=== PATIENT | male | born 1975 | race Caucasian/White ===

== ENCOUNTER 2022-10-27 01:27 | Day surgery (SDC) | payer BC, SELFPAY ==
[2022-10-21 10:18] VITALS: BMI 24.4
--- NOTE | 2022-10-27 13:06 | WPDANESEPPF ---
Anes - Initial Pre Proc Eval Procedure: Operation Date: 10/27/22 14:00 Proposed Procedures p Esophagogastroduodenoscopy & Screening Colonoscopy - Bertrand Benitez MD Date/Time: 10/27/22 13:06 Surgeon: Bertrand Benitez MD Pre Op Diagnosis: hx colon polyps, GERD Patient Data Age: 47 Gender: M Height: 1.78 m Weight: 77.25 kg Allergies Allergy/AdvReac Type Severity Reaction Status Date / Time ioversol Allergy Unknown Hives Verified 10/27/22 13:08 Contrast Media Allergy Severe HIVES Uncoded 10/27/22 13:08 IV CONTRAST Allergy Severe HIVES Uncoded 10/27/22 13:08 Home Medications Medication Instructions Recorded Confirmed Type oxycodone 20 mg tablet 20 mg PO Q4H PRN Pain 11/08/19 10/27/22 History esomeprazole magnesium 20 mg 20 mg PO BID 06/04/22 10/21/22 History capsule,delayed release (Nexium) lisinopril 30 mg tablet 30 mg PO DAILY #90 tabs 06/04/22 10/21/22 Rx simvastatin 20 mg tablet See Rx Instructions .Route 06/04/22 10/27/22 Rx .COMPLEX #90 tabs alprazolam 0.5 mg tablet 0.5 mg PO TID PRN Anxiety 10/21/22 10/21/22 History duloxetine 60 mg capsule,delayed 60 mg PO DAILY 10/21/22 10/21/22 History release gabapentin 300 mg capsule 300 mg PO BID 10/21/22 10/21/22 History ibuprofen 200 mg tablet 600 mg PO QAM PRN Pain 10/21/22 10/21/22 History serdexmethylphenidate 39.2 1 cap PO DAILY 10/21/22 10/21/22 History mg-dexmethylphenidate 7.8 mg capsule (Azstarys) testosterone cypionate 200 mg/mL 100 mg IM WEEKLY 10/21/22 10/21/22 History intramuscular oil trazodone 100 mg tablet 100 - 200 mg PO HS PRN Insomnia 10/21/22 10/21/22 History Patient hx anesthesia problems: none Family hx anesthesia problems: none Results Review: All pre-operative results and documents have been reviewed as part of the pre-operative evaluation. [facility] Past Medical History Medical History (Updated 10/27/22 @ 13:07 by Justin Knight DO) ADHD Anxiety Chronic back pain Chronic, continuous use of opioids GERD (gastroesophageal reflux disease) HLD (hyperlipidemia) Hypertension Surgical History Surgical History H/O colonoscopy (~2017) polyps Family History Family History Grandparent Carcinoma of colon, Onset Age: 60 Social History Social History Smoking status: Former smoker Tobacco type: smokeless tobacco Smokeless tobacco user: chewing tobacco Second hand tobacco smoke exposure: No Additional smoking assessment comments: CHEWS NICOTINE GUM Alcohol intake: never Substance use: never Substance use type: does not use Living arrangements: with family Spiritual care concerns: No Anes - Eval Final PreProcedure Day of Procedure 10/27/22 13:06 Patient weight: normal Heart: regular rate and rhythm Lungs: clear to auscultation and normal air movement Airway: Mallampati scale class II Neurological: alert and oriented Last oral intake: >/= 8 hours ASA classification: III Emergent: no Anesthetic plan: proceed Anesthesia type and monitoring: general GIVS and standard monitoring Results Review: All pre-operative results and documents have been reviewed as part of the pre-operative evaluation. Informed Consent: The patient's anesthetic plan and its attendant risks and benefits were discussed with the patient/family/POA. Questions were solicited and answers provided to the satisfaction of the patient/family/POA.
[2022-10-27 13:11] VITALS: BP 127/96; PULSE 102; RESP 18; TEMP 36.3; O2SAT 98
[2022-10-27] MEDS: LACTATED RINGERS 1,000 ML 150 ML IV CONT (13:23)
--- NOTE | 2022-10-27 13:50 | PM.HPGS ---
History of Present Illness History of Present Illness Consent: Risks, benefits, and alternatives have been discussed and questions answered. Patient agrees to proceed with procedure. Chief complaint: hx colon polyps, GERD Narrative: Woody Rao is a 47 year old male Presents for colonoscopy and EGD. Patient has a history of acid reflux and heartburn. Currently controlled on Nexium 40mg p.o. b.i.d.. He does notice recurrent symptoms if he stops this medication. Patient denies any bleeding or weight loss. Patient is referred today for EGD because of chronic ongoing GE reflux. Patient also presents for screening colonoscopy. Patient has a distant history of colon polyps. Family history is significant is mother had colon polyps his grandmother had colon cancer in uncle had esophageal cancer. Patient presents today for colonoscopy as well as EGD. Screening colonoscopy advised 5 year intervals Review of Systems Review of Systems: review of systems noncontributory. [facility] Past Medical History Medical History (Updated 10/27/22 @ 13:53 by Bertrand Benitez MD) ADHD Anxiety Chronic back pain Chronic, continuous use of opioids GERD (gastroesophageal reflux disease) HLD (hyperlipidemia) Hypertension Surgical History Surgical History H/O colonoscopy (~2017) polyps Family History Family History Grandparent Carcinoma of colon, Onset Age: 60 Social History Social History Smoking status: Former smoker Tobacco type: smokeless tobacco Smokeless tobacco user: chewing tobacco Second hand tobacco smoke exposure: No Additional smoking assessment comments: CHEWS NICOTINE GUM Alcohol intake: never Substance use: never Substance use type: does not use Living arrangements: with family Spiritual care concerns: No Meds Home Medications and Allergies Home Medications Medication Instructions Recorded Confirmed Type oxycodone 20 mg tablet 20 mg PO Q4H PRN Pain 11/08/19 10/27/22 History esomeprazole magnesium 20 mg 20 mg PO BID 06/04/22 10/21/22 History capsule,delayed release (Nexium) lisinopril 30 mg tablet 30 mg PO DAILY #90 tabs 06/04/22 10/21/22 Rx simvastatin 20 mg tablet See Rx Instructions .Route 06/04/22 10/27/22 Rx .COMPLEX #90 tabs alprazolam 0.5 mg tablet 0.5 mg PO TID PRN Anxiety 10/21/22 10/21/22 History duloxetine 60 mg capsule,delayed 60 mg PO DAILY 10/21/22 10/21/22 History release gabapentin 300 mg capsule 300 mg PO BID 10/21/22 10/21/22 History ibuprofen 200 mg tablet 600 mg PO QAM PRN Pain 10/21/22 10/21/22 History serdexmethylphenidate 39.2 1 cap PO DAILY 10/21/22 10/21/22 History mg-dexmethylphenidate 7.8 mg capsule (Azstarys) testosterone cypionate 200 mg/mL 100 mg IM WEEKLY 10/21/22 10/21/22 History intramuscular oil trazodone 100 mg tablet 100 - 200 mg PO HS PRN Insomnia 10/21/22 10/21/22 History Allergies Allergy/AdvReac Type Severity Reaction Status Date / Time ioversol Allergy Unknown Hives Verified 10/27/22 13:08 Contrast Media Allergy Severe HIVES Uncoded 10/27/22 13:08 IV CONTRAST Allergy Severe HIVES Uncoded 10/27/22 13:08 Vital Signs Vital Signs - 24 hr 10/27/22 13:11 Temperature 97.3 F L Pulse Rate 102 H Respiratory Rate 18 Blood Pressure 127/96 H Pulse Oximetry 98 Oxygen Delivery Room Air Exam Narrative: Physical exam reveals patient to be alert. Vital signs stable. HEENT exam is unremarkable. Patient anicteric. Lungs are clear to auscultation and percussion. Heart is without murmur or extra sounds. Abdomen bowel sounds are present soft nontender with no organomegaly. Digital external rectal exam is normal. Assessment and Plan Assessment and plan (1) GERD (gastroesophageal reflux disease): Code(s): K21.9 - Gastro-esophageal reflux
--- NOTE | 2022-10-27 14:30 | SUR.OPER ---
EGD START 1404, END 1409 COLONOSCOPY START 1414, END 1429
[2022-10-27 14:32] VITALS: BP 137/91; PULSE 94; RESP 20; O2SAT 100
[2022-10-27 14:42] VITALS: BP 134/98; PULSE 83; RESP 16; O2SAT 100
[2022-10-27 14:52] VITALS: BP 150/97; PULSE 81; RESP 19; O2SAT 100
== END 2022-10-27 14:58 | disposition home or self-care (01) ==
PROVIDERS: PCP Family Medicine; Visit Provider Internal Medicine Gastroenterology
PROC: 0DJ08ZZ Inspection of Upper Intestinal Tract, Via Natural or Artificial Opening Endoscopic (ICD-10-PCS; CPT 43235; principal; 2022-10-27 14:00)
DX: Z12.11 Encounter for screening for malignant neoplasm of colon (principal); K64.8 Other hemorrhoids; Z86.010 Personal history of colon polyps; Z80.0 Family history of malignant neoplasm of digestive organs; K31.7 Polyp of stomach and duodenum; K21.9 Gastro-esophageal reflux disease without esophagitis; F90.9 Attention-deficit hyperactivity disorder, unspecified type; I10 Essential (primary) hypertension; E78.5 Hyperlipidemia, unspecified; F41.9 Anxiety disorder, unspecified; M54.9 Dorsalgia, unspecified; G89.29 Other chronic pain; Z79.891 Long term (current) use of opiate analgesic; F17.290 Nicotine dependence, other tobacco product, uncomplicated
CPT/HCPCS: 45378; 43251; 88305; J2704; J7120

== ENCOUNTER 2022-10-28 09:02 | Inpatient (IN) | payer BC, SELFPAY ==
[2022-10-28] VITALS (10 sets, daily range): BP systolic 101–125; BP diastolic 70–87; PULSE 76–99; RESP 14–16; TEMP 36.4–36.6; O2SAT 96–100; BMI 23.1
--- NOTE | ~2022-10-28 | CT_ITS ---
EXAMINATION: CT abdomen pelvis wo con DATE: 10/28/2022 10:39 INDICATION: Abdomen pain post colonoscopy. TECHNIQUE: Computed tomography (CT) of the abdomen and pelvis was performed without intravenous contr ast. The dose-length product was 377.40 mGy-cm. Automated exposure control and iterative reconstructi on technique were employed. COMPARISON: None. FINDINGS: Lung bases are unremarkable. Heart size normal. No significant pleural or pericardial effus ion. There is a large amount of debris in the stomach with fluid throughout the proximal and mid smal l bowel. There is transition in the central abdomen, suspicious for obstruction. The distal small bow el is decompressed. The liver, spleen, pancreas, adrenal glands and kidneys are unremarkable. No free air or free fluid. Mild osteoarthritis of the hips. No acute osseous abnormality. No significant vas cular abnormality. No lymphadenopathy. IMPRESSION: 1. Small bowel obstruction. No evidence for perforation. Reviewed, dictated and finalized at location A. CAL VOUCHER CLERK
--- NOTE | ~2022-10-28 | XR_ITS ---
XR abdomen NG/feed tube insert INDICATION: Evaluate NG tube position. TECHNIQUE: Limited KUB perform for evaluating NG tube . COMPARISON: No prior studies for comparison. FINDINGS: NG tube tip in the stomach. Visualized bowel gas pattern is nonspecific.There are air-flui d levels in the small bowel. IMPRESSION: 1: NG tube tip in the stomach. Reviewed, dictated and finalized at location A. TOR ENGINE ASSEMBLER
[2022-10-28 09:24] LABS: Basophils Percent Auto 0.3 % (0.2-1.2); Eosinophils Percent Auto 0.1 % (0-4.4); Immature Granulocyte Absolute 0.04 K/mm3 (0.00-0.031); Immature Granulocyte Percent A 0.3 % (0-0.5); Lymphocytes Absolute Auto 1.32 K/mm3 (0.9-3.2); Mean Corpuscular HGB Conc 35.6 g/dl (32-36); Mean Corpuscular Hemoglobin 31.7 pg (26-34); Mean Corpuscular Volume 89.1 fl (80-100); Monocytes Absolute Auto 0.6 K/mm3 (0.1-0.6); Monocytes Percent Auto 4.4 % (2.6-8.5); Neutrophils Absolute Auto 11.2 K/mm3 (1.3-6.7); Neutrophils Percent Auto 84.9 % (45.5-73.1); Platelet Count Result 240 k/mm3 (150-375); Red Blood Count 5.05 M/mm3 (4.6-6.20); Red Cell Distribution Width 12.3 % (11.5-14.5); White Blood Count 13.2 K/mm3 (4.5-10.0)
[2022-10-28 09:36] LABS: Alanine Aminotransferase 40 U/L (6-50); Albumin Level 4.7 g/dL (3.5-5.1); Alkaline Phosphatase 55 U/L (38-126); Anion Gap 10 mmol/L (8-16); Aspartate Amino Transferase 29 U/L (17-59); Bilirubin,Total 0.8 mg/dL (0.2-1.3); Blood Urea Nitrogen 48 mg/dL (9-20); Calcium 9.3 mg/dL (8.4-10.2); Carbon Dioxide 29 mmol/L (22-30); Chloride 101 mmol/L (98-107); Estimated CRCL calculation 63 ml/min; Estimated Glomerular Filt Rate 59; Glucose 161 mg/dL (65-110); Lipase 63 U/L (23-300); Potassium 5.3 mmol/L (3.4-5.0); Sodium 140 mmol/L (137-145)
--- NOTE | 2022-10-28 10:24 | ED.ABDPAIN ---
HPI - Abdominal Pain General Chief Complaint: Abdominal Pain Stated Complaint: ABD/BACK Pain Time Seen by Provider: 10/28/22 10:23 Source: patient, family and EMS Mode of arrival: EMS Limitations: no limitations History of Present Illness HPI narrative: 47 years old white male the emergency room by ambulance because of watery black stool all night long, about 4 episodes, with abdominal pain and diaphoresis. Patient is a status post colonoscopy and EGD yesterday at 2 PM, for regular checkup because of positive family history of colonic cancer. Patient had 1 polyp removed from the stomach yesterday. MD elicited complaint: abdominal pain Related Data Home Medications Medication Instructions Recorded Confirmed oxycodone 20 mg tablet 20 mg PO Q4H PRN Pain 11/08/19 10/27/22 esomeprazole magnesium 20 mg 20 mg PO BID 06/04/22 10/21/22 capsule,delayed release (Nexium) alprazolam 0.5 mg tablet 0.5 mg PO TID PRN Anxiety 10/21/22 10/21/22 duloxetine 60 mg capsule,delayed 60 mg PO DAILY 10/21/22 10/21/22 release gabapentin 300 mg capsule 300 mg PO TID 10/21/22 10/21/22 ibuprofen 200 mg tablet 600 mg PO QAM PRN Pain 10/21/22 10/21/22 serdexmethylphenidate 39.2 1 cap PO DAILY 10/21/22 10/21/22 mg-dexmethylphenidate 7.8 mg capsule (Azstarys) trazodone 100 mg tablet 100 - 200 mg PO HS PRN Insomnia 10/21/22 10/21/22 sildenafil (pulm.hypertension) 20 20 - 100 mg PO DAILY PRN Erectile 10/28/22 mg tablet Dysfunction simvastatin 20 mg tablet 20 mg DAILY 10/28/22 10/28/22 Allergies Allergy/AdvReac Type Severity Reaction Status Date / Time ioversol Allergy Unknown Hives Verified 10/27/22 13:08 Contrast Media Allergy Severe HIVES Uncoded 10/27/22 13:08 IV CONTRAST Allergy Severe HIVES Uncoded 10/27/22 13:08 Review of Systems Review of Systems: All systems reviewed & are unremarkable except as noted in HPI and below PMFSH Past Medical History Medical History ADHD Anxiety Chronic back pain Chronic, continuous use of opioids GERD (gastroesophageal reflux disease) HLD (hyperlipidemia) Hypertension Surgical History Surgical History H/O colonoscopy (~2017) polyps Family History Family History Grandparent Carcinoma of colon, Onset Age: 60 Social History Social History Smoking status: Former smoker Tobacco type: smokeless tobacco Smokeless tobacco user: chewing tobacco Second hand tobacco smoke exposure: No Additional smoking assessment comments: CHEWS NICOTINE GUM Alcohol intake: never Substance use: never Substance use type: does not use Spiritual care concerns: No Exam Narrative: General appearance: Well-developed, well-nourished Skin: Normal color Head: Normocephalic, nontraumatic Eyes: Clear conjunctiva ENT: Oropharynx normal, ears normal, nose normal Neck: Supple, nontender Chest and respiratory: Airway patent, no respiratory distress, no accessory muscle use Heart: Regular rate/rhythm Abdomen: Soft, slight diffuse tenderness, no distention, no organomegaly, quiet bowel sounds, rectal exam showed liquid stool, black, guaiac positive Vascular: Normal peripheral pulses, normal capillary refill. Musculoskeletal: Normal range of motion, nontender back Neurologic: Alert and oriented ?3, LINING SEWER is normal as tested, no gross motor deficit Course Consultations Consultation #1: Dr. Benitez Date: 10/28/22 Time: 12:46 Consultation #2: Dr. Pineda Date: 10/28/22 Time: 12:46 Vital Signs Vital signs: Vital Signs
[2022-10-28] MEDS: SODIUM CHLORIDE 0.9% IV 1,000 ML 999 ML IV CONT (10:41)
[2022-10-28] MEDS: ONDANSETRON INJ 4 MG/2 ML VIAL IV PUSH ×2 (10:42→13:34)
[2022-10-28] MEDS: HYDROmorphone HCL INJ (*CRX) 1 MG/ML SYR 0.5 MG IV PUSH ×3 (10:43→22:01)
[2022-10-28 12:59] LABS: Influenza A QL RT-PCR Negative (Negative); Influenza B QL RT-PCR Negative (Negative); SARS-CoV-2 RNA PCR Negative
[2022-10-28] MEDS: PANTOPRAZOLE SODIUM IV 40 MG VIAL IV PUSH ×2 (13:35→21:48)
--- NOTE | 2022-10-28 13:35 | PM.IMHP ---
H&P: HPI History of Present Illness Date/Time: 10/28/22 13:35 Chief Complaint: Abdominal pain. Narrative: This is a pleasant 47-year-old male with GERD, hyperlipidemia, anxiety, and chronic pain syndrome on long-term opiate therapy who presented to the emergency department via EMS from home for evaluation of abdominal pain. He had upper and lower endoscopies yesterday and seemed to be doing okay following the procedure. At about 01:00 he was wakened from sleep with severe, diffuse abdominal pain as well as nausea and and sweats. He has difficulties describing the pain and states that it does not radiate. He gives no aggravating or alleviating factors. He then passed upwards of for black, tarry stools throughout the rest of the night which has left him profoundly weak. In fact he had a couple of falls in his bedroom due to the weakness but he denies syncope. He indicates that he had a gastric polyp removed and he is wondering if the bleeding is due to that. With further questioning he does take 600 milligrams of ibuprofen twice a day but has done so for years and he takes that in conjunction with a PPI. Prior to today he has not noticed any dark stools. He denies vomiting hematemesis. He has not a fever. In the ED was found to have evidence of a small-bowel obstruction on CT of the abdomen and pelvis and he is being admitted in this setting for supportive care and GI consultation given the melena. Review of Systems Review of Systems: Twelve systems were reviewed. No fever. No recent cold or flu symptoms. No chest pain, pleuritic pain, or shortness of breath. Except as documented, all other systems were reviewed and are negative. [facility] Past Medical History Medical History (Updated 10/28/22 @ 21:24 by Simran Bull PA-C) ADHD Anxiety Chronic back pain Chronic, continuous use of opioids Gastroesophageal reflux disease Hyperlipidemia Hypertension Obstructive sleep apnea No longer uses CPAP after weight loss. Surgical History Surgical History History of colonoscopy with polypectomy Family History Family History Grandparent Carcinoma of colon, Onset Age: 60 Social History Social History Social History: Surrogate medical decision maker: Cindy Rao, spouse. Code status: Full code. Smoking status: Former smoker Tobacco type: smokeless tobacco Smokeless tobacco user: chewing tobacco Second hand tobacco smoke exposure: No Additional smoking assessment comments: Chews nicotine gum. Alcohol intake: never Substance use: never Substance use type: does not use Lack of Transportation: No Lack of Food: Never True Current Housing: I Have Housing Concerned About Future Housing: No Difficulty Paying Gas/Electric Bills: No Difficulty Paying for Meds: No Currently Unemployed: No Education: Associate Degree Difficulty w/ Childcare or Family Care: No Spiritual care concerns: No Meds Home Medications and Allergies Home Medications Medication Instructions Recorded Confirmed Type oxycodone 20 mg tablet 20 mg PO Q4H PRN Pain 11/08/19 10/28/22 History esomeprazole magnesium 20 mg 20 mg PO BID 06/04/22 10/28/22 History capsule,delayed release (Nexium) lisinopril 30 mg tablet 30 mg PO DAILY #90 tabs 06/04/22 10/28/22 Rx alprazolam 0.5 mg tablet 0.5 mg PO TID PRN Anxiety 10/21/22 10/28/22 History duloxetine 60 mg capsule,delayed 60 mg PO DAILY 10/21/22 10/28/22 History release gabapentin 300 mg capsule 300 mg PO TID 10/21/22 10/28/22 History serdexmethylphenidate 39.2 1 cap PO DAILY 10/21/22 10/28/22 History mg-dexmethylphenidate 7.8 mg capsule (Azstarys) trazodone 100 mg tablet 100 - 200 mg PO HS PRN Insomnia 10/21/22 10/28/22 History simvastatin 20 mg tablet 20 mg DAILY 10/28/22 10/28/22 History A
[2022-10-28 13:47] LABS: Hematocrit 39.2 % (42.0-52.0); Hemoglobin 13.9 g/dL (14.0-18.0)
[2022-10-28] MEDS: SODIUM CHLORIDE 0.9% IV 1,000 ML 150 ML IV CONT ×2 (14:55→22:03)
--- NOTE | 2022-10-28 15:37 | WPDGICN ---
Assessment and Plan Assessment and plan (1) Abdominal pain: Code(s): R10.9 - Unspecified abdominal pain Status: Acute Assessment and Plan: Patient with abdominal pain. Appears to be related abnormality seen on the CT scan. I suspect this is more likely an ileus rather than a small bowel obstruction. Plan for NG tube decompression. Small-bowel follow-through in the morning. Supportive care for now. (2) Abnormal CT scan: Code(s): R93.89 - Abnormal findings on diagnostic imaging of other specified body structures Status: Acute Assessment and Plan: Small-bowel follow-through described by radiologist. This seems unlikely. Likely an ileus. If symptoms persist small-bowel follow-through may be warranted to exclude other potential etiologies. (3) Gastric polyp: Code(s): K31.7 - Polyp of stomach and duodenum Status: Acute Assessment and Plan: Polyp of the stomach removed with snare yesterday likely accounts for melenic stools. Hemoglobin stable will monitor hemoglobin for now. Histology of polyp pending. Grossly was benign. (4) Family hx of colon cancer: Code(s): Z80.0 - Family history of malignant neoplasm of digestive organs Status: Acute Assessment and Plan: Mother had colon cancer. Follow-up colonoscopy at 5 year intervals indicated. (5) GERD (gastroesophageal reflux disease): Code(s): K21.9 - Gastro-esophageal reflux disease without esophagitis Status: Acute Assessment and Plan: History of GE reflux appears stable. Endoscopy was unremarkable in this regard. Plan to continue PPI therapy long-term. GI Consult Note Consult date/time: 10/28/22 15:37 Reason for consult: Abnormal CAT scan, abdominal pain. HPI: Woody Rao is a 47 year old male Presented to the emergency room today with abdominal pain. Patient presented yesterday for screening colonoscopy because of family history of colon cancer. The colonoscopy was unremarkable. Because of acid reflux patient underwent an EGD in rather large pre pyloric gastric polyp was removed with snare. Patient did well however in the middle of the night at 1:00 a.m. he was awoken with rather severe abdominal pain. He did pass several watery black stools. For these reasons he present to the emergency room today. Stool was confirmed to be Hemoccult positive. Hemoglobin stable. CT scan was performed which reason feel dilatation of the proximal small bowel suggesting potential for small-bowel obstruction versus ileus. Patient feels much improved on an examination in the emergency room today. Review of Systems Review of Systems: Review of systems noncontributory. [facility] Past Medical History Medical History (Updated 10/28/22 @ 15:46 by Bertrand Benitez MD) ADHD Anxiety Chronic back pain Chronic, continuous use of opioids Gastroesophageal reflux disease Hyperlipidemia Hypertension Obstructive sleep apnea Surgical History Surgical History (Updated 10/28/22 @ 13:40 by Simran Bull PA-C) History of colonoscopy with polypectomy Family History Family History Grandparent Carcinoma of colon, Onset Age: 60 Social History Social History (Updated 10/28/22 @ 13:43 by Simran Bull PA-C) Social History: Surrogate medical decision maker: Cidny Rao, spouse. Code status: Full code. Smoking status: Former smoker Tobacco type: smokeless tobacco Smokeless tobacco user: chewing tobacco Second hand tobacco smoke exposure: No Additional smoking assessment comments: Chews nicotine gum. Alcohol intake: never Substance use: never Substance use type: does not use Spiritual care concerns: No Meds Home Medications and Allergies Home Medications Medication Instructions Recorded Confirmed Type oxycodone 20 mg tablet 20 mg PO Q4H PRN Pain 11/08/19 10/27/22 History esom
--- NOTE | 2022-10-28 15:51 | PC.NURSE ---
This patient, Woody Rao, was admitted to 3 [facility] Surg Room 320-01. Patient/family oriented to hospital policies and general routines including ID bracelet, bed and alarms, visiting hours, pain management, procedures, bathroom and other care routines, personal items, smoking policy, room service/diet, and visiting hours. Information on how to activate the Rapid Response Team has been discussed. Patient/Family are encouraged to report perceived risks to care and to ask questions if they do not understand what they are told or what they should do.
[2022-10-28 16:03] LABS: Appearance Urine Clear (Clear); Bilirubin Urine Negative (Negative); Blood Urine Negative (Negative); Color Urine Yellow (Yellow); Glucose Urine UA Negative (Negative); Ketones Urine Trace mg/dL (Negative); Leukocyte Esterase Ur Negative LEU/UL (Negative); Nitrate Urine Negative (Negative); Protein Urine Negative (Negative); Specific Grav Ur 1.015 (1.001-1.035); Urobilinogen Urine 0.2 mg/dL (<2.0); pH Urine 5.5 (5.0-9.0)
[2022-10-28 16:10] LABS: Mucus Urine Rare /lpf; WBC Urine 0-3 /hpf
[2022-10-28 16:12] LABS: Add Urine Microscopic? YES
--- NOTE | 2022-10-28 18:09 | PM.CNGS ---
Assessment and Plan Assessment and plan (1) GI bleed: Code(s): K92.2 - Gastrointestinal hemorrhage, unspecified Status: Acute Assessment and Plan: I agree with Dr. Benitez that this is very unlikely to be a small bowel obstruction. I reviewed the CT scan and with the old blood coming out of the NG tube I suspect that sometime after the patient was home he began bleeding from the polypectomy site and had fairly brisk bleeding. This likely led to his pain and the subsequent black stools that he had. I think the particulate matter in the stomach is likely old blood. Defer to Dr. Benitez regarding best methods to either remove for past the gastric and small bowel contents along. Continue to monitor H&H. No plans for surgery. I will start patient on ice chips tonight. (2) Abnormal CT scan: Code(s): R93.89 - Abnormal findings on diagnostic imaging of other specified body structures Status: Acute Assessment and Plan: Doubt very much this is small-bowel obstruction. Please see above. (3) Gastric polyp: Code(s): K31.7 - Polyp of stomach and duodenum Status: Chronic Assessment and Plan: Pathology pending (4) GERD (gastroesophageal reflux disease): Code(s): K21.9 - Gastro-esophageal reflux disease without esophagitis Status: Chronic Assessment and Plan: no esophagitis on EGD. Symptoms controlled with twice a day Nexium. History of Present Illness Consult details Consult date: 10/28/22 Reason for consult: abdominal pain Requesting physician: Deirdre Jimenez MD Narrative: Patient is a 47-year-old man who has chronic back pain and takes 20 mg of oxycodone regularly for this. He also has a history of gastroesophageal reflux disease and takes Nexium twice a day which does seem to relieve the reflux significantly. Patient has family history of colon cancer and polyps as well as his significant reflux disease. He underwent an EGD and colonoscopy by Dr. Benitez yesterday. The colonoscopy was negative except for some internal hemorrhoids which were not bleeding. The EGD showed a good-sized pre-pyloric polyp which was completely excised with hot snare polypectomy. Patient recovered uneventfully except that about 1:00 a.m. this morning he started having severe hypogastric abdominal pain. He was also diaphoretic. He went on to have some watery black stools. He came to the emergency room and was evaluated. His H&H was 16 and 45. He had a CT scan of the abdomen and pelvis which showed small-bowel obstruction with transition point in the mid abdomen. Also noted was a large amount of debris in the stomach with fluid throughout the proximal and mid small intestine. He has been admitted to the hospitalist service. Dr. Benitez has seen the patient. Nasogastric tube has been placed. Currently he is not having any abdominal pain but just feels very fatigued, uncomfortable, and dehydrated. Review of Systems Review of Systems: All systems reviewed & are unremarkable except as noted in HPI and below ( HPI and those items noted below) Constitutional: Constitutional: Reports as per HPI, Denies chills, Reports fatigue, Denies fever(s), Reports lethargy and Reports weakness Cardiovascular: Cardiovascular: Denies chest pain, Denies diaphoresis, Denies dyspnea and Denies paroxysmal nocturnal dyspnea Respiratory: Respiratory: Denies chest congestion, Denies cough and Denies dyspnea Gastrointestinal: Gastrointestinal: Reports as per HPI, Reports abdominal pain and Reports melena Integumentary/Breasts: Skin/Breast: Denies lesions and Denies rash [facility] Past Medical History Medical History ADHD Anxiety Chronic back pain Chronic, continuous use of opioids Gastroesophageal reflux disease Hyperlipidemia Hypertension Obstructive sleep apnea Surgical History Surgical History Hi
[2022-10-28 19:12] LABS: Hematocrit 33.7 % (42.0-52.0); Hemoglobin 11.7 g/dL (14.0-18.0)
[2022-10-28 21:47] LABS: Anion Gap 1 mmol/L (8-16); Blood Urea Nitrogen 40 mg/dL (9-20); Calcium 8.2 mg/dL (8.4-10.2); Carbon Dioxide 28 mmol/L (22-30); Chloride 109 mmol/L (98-107); Estimated CRCL calculation 82 ml/min; Estimated Glomerular Filt Rate > 60; Glucose 99 mg/dL (65-110); Magnesium 2.1 mg/dL (1.6-2.3); Potassium 4.6 mmol/L (3.4-5.0); Sodium 138 mmol/L (137-145)
[2022-10-29 01:15] LABS: Hematocrit 31.6 % (42.0-52.0); Hemoglobin 11.1 g/dL (14.0-18.0)
[2022-10-29] MEDS: HYDROmorphone HCL INJ (*CRX) 1 MG/ML SYR 0.5 MG IV PUSH ×5 (03:05→21:18)
[2022-10-29] MEDS: SODIUM CHLORIDE 0.9% IV 1,000 ML 150 ML IV CONT ×3 (04:50→18:28)
[2022-10-29 06:00] VITALS: BP 142/87; PULSE 64; RESP 18; TEMP 36.9; O2SAT 98
--- NOTE | 2022-10-29 06:51 | PM.PNGS ---
Progress Note: A&P Assessment and Plan (1) GI bleed: Code(s): K92.2 - Gastrointestinal hemorrhage, unspecified Status: Acute Assessment and Plan: suspect post polypectomy bleeding. Old blood from NG tube. Consider endoscopic evacuation or water-soluble contrast per NG. Plan per Dr. Benitez. No plans for surgery. (2) Abnormal computed tomography of abdomen and pelvis: Code(s): R93.5 - Abnormal findings on diagnostic imaging of other abdominal regions, including retroperitoneum Status: Acute Assessment and Plan: Do not feel this represents small bowel up direction. Subjective Subjective Date/Time Seen: 10/29/22 06:51 Patient reports: no new complaints, pain is less ( No abdominal pain) and afebrile Review of Systems Review of Systems: All systems reviewed & are unremarkable except as noted in HPI and below ( as noted in HPI and those items below) Constitutional: Constitutional: Denies chills and Denies fever(s) Cardiovascular: Cardiovascular: Denies chest pain, Denies diaphoresis, Denies dyspnea and Denies paroxysmal nocturnal dyspnea Respiratory: Respiratory: Denies chest congestion, Denies cough and Denies dyspnea Integumentary/Breasts: Skin/Breast: Denies lesions and Denies rash Exam Const: General: comfortable and no acute distress; No confusion Orientation/consciousness: patient oriented x3 and No confusion GI: Inspection: other ( old blood coming from NG tube) GI Palp: Yes Soft to palpation, No Tenderness to palpation present (GI), No Guarding due to palpation present (GI) and No Rebound tenderness present Neuro: General: patient oriented x3, no focal motor deficits and No confusion Extrem: General: no calf tenderness and no edema Psych: Affect: normal affect Insight: Good insight present (Psych) Judgement: Good judgement present (Psych) Objective Data Vital Signs Vital Signs: Vital Signs - 24 hr 10/28/22 09:06 10/28/22 09:05 10/28/22 09:06 Temperature 36.5 C Pulse Rate 99 Respiratory Rate 14 Blood Pressure 116/85 116/85 Pulse Oximetry 99 99 100 Oxygen Delivery 10/28/22 09:15 10/28/22 09:16 10/28/22 09:30 Temperature Pulse Rate Respiratory Rate Blood Pressure 113/87 Pulse Oximetry 97 98 99 Oxygen Delivery 10/28/22 09:31 10/28/22 16:00 10/28/22 16:28 Temperature 36.4 C Pulse Rate 86 Respiratory Rate 16 Blood Pressure 101/70 119/77 Pulse Oximetry 98 100 Oxygen Delivery Room Air 10/28/22 22:00 10/28/22 20:00 10/29/22 06:00 Temperature 36.6 C 36.9 C Pulse Rate 76 76 64 Respiratory Rate 16 16 18 Blood Pressure 125/75 142/87 H Pulse Oximetry 96 96 98 Oxygen Delivery Room Air 10/28/22 16:14 Temperature 36.4 C Pulse Rate 86 Respiratory Rate 16 Blood Pressure 119/77 Pulse Oximetry 100 Oxygen Delivery Intake/Output Intake/Output: Intake & Output 10/26/22 10/27/22 10/28/22 10/29/22 23:59 23:59 23:59 23:59 Intake Total 1999 1030 Output Total 860 Balance 1999 170 Meds/Results Medications: Active Medications Generic Name Dose Route Start Last Admin Trade Name Freq PRN Reason Stop Dose Admin Hydromorphone HCl 0.5 mg 10/28/22 12:52 10/29/22 03:05 Hydromorphone Hcl Inj (*Crx) 1 Mg/Ml Syr IV PUSH 0.5 mg Q4H PRN Administration Pain Rated 7-10 Acetaminophen 1,000 mg in 100 mls @ 400 mls/hr 10/28/22 12:52 Ofirmev 1,000 Mg Ivpb IVPB 10/29/22 12:51 Q6H PRN Mild Pain (1-3) or Fever Sodium Chloride 1,000 mls @ 150 mls/hr 10/28/22 12:55 10/29/22 04:50 Normal Saline Iv IV CONT 150 mls/hr .Q6H40M VIJAYA Administration Ondansetron HCl 4 mg 10/28/22 12:52 Ondansetron Inj 4 Mg/2 Ml Vial IV PUSH Q4H PRN Nausea Pantoprazole Sodium 40 mg 10/28/22 21:25 10/28/22 21:48 Pantoprazole Sodium Iv 40 Mg Vial IV PUSH 40 mg Q12HR VIJAYA Administration Radiology Results: ITS Impressions Abdomen/Pelvis CT 10/28/22 10:44
[2022-10-29 07:06] LABS: Basophils Percent Auto 0.3 % (0.2-1.2); Eosinophils Percent Auto 0.4 % (0-4.4); Hemoglobin 10.8 g/dL (14.0-18.0); Immature Granulocyte Absolute 0.02 K/mm3 (0.00-0.031); Immature Granulocyte Percent A 0.3 % (0-0.5); Lymphocytes Absolute Auto 1.87 K/mm3 (0.9-3.2); Lymphocytes Percent Auto 24.4 % (18.3-44.2); Mean Corpuscular HGB Conc 33.8 g/dl (32-36); Mean Corpuscular Hemoglobin 31.4 pg (26-34); Mean Platelet Volume 10.1 fl (7.4-10.4); Monocytes Absolute Auto 0.4 K/mm3 (0.1-0.6); Neutrophils Absolute Auto 5.4 K/mm3 (1.3-6.7); Neutrophils Percent Auto 69.6 % (45.5-73.1); Platelet Count Result 153 k/mm3 (150-375); Red Blood Count 3.44 M/mm3 (4.6-6.20); Red Cell Distribution Width 12.7 % (11.5-14.5); White Blood Count 7.7 K/mm3 (4.5-10.0)
[2022-10-29 07:30] LABS: Anion Gap 2 mmol/L (8-16); Blood Urea Nitrogen 27 mg/dL (9-20); Calcium 7.8 mg/dL (8.4-10.2); Carbon Dioxide 29 mmol/L (22-30); Chloride 108 mmol/L (98-107); Estimated CRCL calculation 90 ml/min; Estimated Glomerular Filt Rate > 60; Glucose 102 mg/dL (65-110); Potassium 4.4 mmol/L (3.4-5.0); Sodium 139 mmol/L (137-145)
[2022-10-29 08:13] VITALS: BP 139/89; PULSE 83; RESP 24; TEMP 36.4; O2SAT 100
[2022-10-29] MEDS: PANTOPRAZOLE SODIUM IV 40 MG VIAL IV PUSH ×2 (08:25→21:13)
--- NOTE | 2022-10-29 08:43 | WPDGIPROGNO ---
Progress Note: A&P Assessment and Plan (1) Melena: Code(s): K92.1 - Melena Status: Acute Assessment and Plan: Patient admitted with melenic stools. Likely had some bleeding after gastric polyp polypectomy. Polyp appeared benign. Final histology pending. Patient's hemoglobin declines some but has remained stable subsequently. Current hemoglobin 10.8 this morning. No transfusion anticipated. Will discontinue NG tube in advance diet. Continue monitor hemoglobin conservatively. Place patient on Protonix and continue this. Wait till patient tolerates oral diet before trying oral medications. (2) Abnormal CT scan: Code(s): R93.89 - Abnormal findings on diagnostic imaging of other specified body structures Status: Acute Assessment and Plan: No evidence for small bowel obstruction. I think x-ray findings were spurious. Plan to advance diet as tolerated. (3) Gastric polyp: Code(s): K31.7 - Polyp of stomach and duodenum Status: Chronic Assessment and Plan: Await final histology for gastric polyp. Suspect is benign but needs to be reviewed. Subjective Date/time seen: 10/29/22 08:43 Patient alert more comfortable this morning. No significant additional bowel movements. NG tube placed last night revealed coffee-ground return. Patient denies abdominal pain this morning. Review of Systems Review of Systems: Review of systems noncontributory. Exam Narrative: Physical exam reveals patient to be alert. Vital signs stable. HEENT exam reveals no icterus. Lungs are clear. Heart without murmur. Abdomen bowel sounds present soft nontender with no organomegaly. Abdomen is soft flat nontender. Objective Data Vital Signs Vital Signs: Vital Signs - 24 hr 10/28/22 09:06 10/28/22 09:05 10/28/22 09:06 Temperature 97.7 F Pulse Rate 99 Respiratory Rate 14 Blood Pressure 116/85 116/85 Pulse Oximetry 99 99 100 Oxygen Delivery 10/28/22 09:15 10/28/22 09:16 10/28/22 09:30 Temperature Pulse Rate Respiratory Rate Blood Pressure 113/87 Pulse Oximetry 97 98 99 Oxygen Delivery 10/28/22 09:31 10/28/22 16:00 10/28/22 16:28 Temperature 97.6 F Pulse Rate 86 Respiratory Rate 16 Blood Pressure 101/70 119/77 Pulse Oximetry 98 100 Oxygen Delivery Room Air 10/28/22 22:00 10/28/22 20:00 12/08/22 06:00 Temperature 97.8 F 98.5 F Pulse Rate 76 76 64 Respiratory Rate 16 16 18 Blood Pressure 125/75 142/87 H Pulse Oximetry 96 96 98 Oxygen Delivery Room Air 10/29/22 08:13 10/28/22 16:14 Temperature 97.5 F L 97.6 F Pulse Rate 83 86 Respiratory Rate 24 H 16 Blood Pressure 139/89 119/77 Pulse Oximetry 100 100 Oxygen Delivery Intake/Output Intake/Output: Intake & Output 10/26/22 10/27/22 10/28/22 10/29/22 23:59 23:59 23:59 23:59 Intake Total 1999 1030 Output Total 860 Balance 1999 170 Meds/Results Medications: Active Medications Generic Name Dose Route Start Last Admin Trade Name Freq PRN Reason Stop Dose Admin Hydromorphone HCl 0.5 mg 10/28/22 12:52 10/29/22 08:19 Hydromorphone Hcl Inj (*Crx) 1 Mg/Ml Syr IV PUSH 0.5 mg Q4H PRN Administration Pain Rated 7-10 Acetaminophen 1,000 mg in 100 mls @ 400 mls/hr 10/28/22 12:52 Ofirmev 1,000 Mg Ivpb IVPB 10/29/22 12:51 Q6H PRN Mild Pain (1-3) or Fever Sodium Chloride 1,000 mls @ 150 mls/hr 10/28/22 12:55 10/29/22 04:50 Normal Saline Iv IV CONT 150 mls/hr .Q6H40M VIJAYA Administration Ondansetron HCl 4 mg 10/28/22 12:52 Ondansetron Inj 4 Mg/2 Ml Vial IV PUSH Q4H PRN Nausea Pantoprazole Sodium 40 mg 10/28/22 21:25 10/29/22 08:25 Pantoprazole Sodium Iv 40 Mg Vial IV PUSH 40 mg Q12HR VIJAYA Administration Radiology Results: ITS Impressions Abdomen/Pelvis CT 10/28/22 10:44 IMPRESSION: 1. Small bowel obstruction. No evidence for perforation. Abdomen X-Ray 10/28/22 1
[2022-10-29 12:00] VITALS: BP 139/89; PULSE 80
--- NOTE | 2022-10-29 13:44 | PM.IMPN ---
Progress Note: A&P Assessment and Plan (1) GI bleed: Code(s): K92.2 - Gastrointestinal hemorrhage, unspecified Status: Acute (2) Abnormal computed tomography of abdomen and pelvis: Code(s): R93.5 - Abnormal findings on diagnostic imaging of other abdominal regions, including retroperitoneum Status: Acute (3) Hyperkalemia: Code(s): E87.5 - Hyperkalemia Status: Acute (4) Gastroesophageal reflux disease: Code(s): K21.9 - Gastro-esophageal reflux disease without esophagitis Status: Acute (5) Hypertension: Qualifiers: Hypertension type: essential hypertension Qualified Code(s): I10 - Essential (primary) hypertension Code(s): I10 - Essential (primary) hypertension Status: Acute (6) Hyperlipidemia: Code(s): E78.5 - Hyperlipidemia, unspecified Status: Acute Plan The patient presented to the emergency department for evaluation of abdominal pain and melena since 01:00. He had upper and lower endoscopies done yesterday and had a gastric polypectomy. It sounds as though he may be bleeding from the polypectomy site and he has since been started on Protonix. Hemoglobin and hematocrit will be trended and he will be transfused if indicated. CT of the abdomen and pelvis shows findings of a small bowel obstruction though his abdominal exam at this time is relatively benign, I am wondering if he may have had an ileus. Continue NG for now. Drs. Benitez and Edwin have been consulted for their input. Potassium should improve with IV fluid hydration and will be repeated this evening. He will be NPO for now. IV analgesics and antiemetics available as needed. Vital signs were reviewed and they are stable. 10/29/2022 interval history: patient status post colonoscopy and polypectomy developed melena which is now improved and hemoglobin is stable, there was also concern patient may have small bowel obstruction patient was seen by GI and surgery service does not suspect patient has a small-bowel obstruction NG tube was removed and patient is advanced p.o. intake, patient also has history of alcohol abuse with concern for withdrawal. Place the patient on CIWA protocol with Librium and Ativan as needed continue and further recommendation to follow. Subjective Date/time seen: 10/29/22 13:44 HPI-Narrative: This is a pleasant 47-year-old male with GERD, hyperlipidemia, anxiety, and chronic pain syndrome on long-term opiate therapy who presented to the emergency department via EMS from home for evaluation of abdominal pain. He had upper and lower endoscopies yesterday and seemed to be doing okay following the procedure. At about 01:00 he was wakened from sleep with severe, diffuse abdominal pain as well as nausea and and sweats. He has difficulties describing the pain and states that it does not radiate.? He gives no aggravating or alleviating factors. He then passed upwards of for black, tarry stools throughout the rest of the night which has left him profoundly weak. In fact he had a couple of falls in his bedroom due to the weakness but he denies syncope. He indicates that he had a gastric polyp removed and he is wondering if the bleeding is due to that. With further questioning he does take 600 milligrams of ibuprofen twice a day but has done so for years and he takes that in conjunction with a PPI. Prior to today he has not noticed any dark stools. He denies vomiting hematemesis.? He has not a fever. In the ED was found to have evidence of a small-bowel obstruction on CT of the abdomen and pelvis and he is being admitted in this setting for supportive care and GI consultation given the melena. 10/29/2022 interval history: patient status post colonoscopy and polypectomy developed melena which is now improved and hemoglobin is stable, there was also concern patient may have small bowel obstruction patient was seen by GI and surgery service does not suspect patient has a small-bowel obstructio
[2022-10-29 14:00] VITALS: BP 136/75; PULSE 85; RESP 20; TEMP 36.7; O2SAT 99
[2022-10-29 16:00] VITALS: PULSE 88
[2022-10-29] MEDS: LORazepam INJ (*CRX) 2 MG/ML VIAL 1 MG IV PUSH (16:12)
[2022-10-29 21:26] VITALS: BP 151/78; PULSE 81; RESP 18; TEMP 36.8; O2SAT 100
[2022-10-30] MEDS: SODIUM CHLORIDE 0.9% IV 1,000 ML 150 ML IV CONT ×2 (00:54→09:41)
[2022-10-30] MEDS: HYDROmorphone HCL INJ (*CRX) 1 MG/ML SYR 0.5 MG IV PUSH ×3 (01:58→10:32)
[2022-10-30 05:15] VITALS: BP 144/78; PULSE 76; RESP 12; TEMP 36.5; O2SAT 99
[2022-10-30 07:17] LABS: Hematocrit 28.4 % (42.0-52.0); Hemoglobin 9.9 g/dL (14.0-18.0); Mean Corpuscular HGB Conc 34.9 g/dl (32-36); Mean Corpuscular Hemoglobin 31.8 pg (26-34); Mean Corpuscular Volume 91.3 fl (80-100); Mean Platelet Volume 10.5 fl (7.4-10.4); Platelet Count Result 145 k/mm3 (150-375); Red Blood Count 3.11 M/mm3 (4.6-6.20); Red Cell Distribution Width 12.2 % (11.5-14.5); White Blood Count 5.7 K/mm3 (4.5-10.0)
--- NOTE | 2022-10-30 07:18 | WPDGIPROGNO ---
Progress Note: A&P Assessment and Plan (1) Gastric polyp: Code(s): K31.7 - Polyp of stomach and duodenum Status: Chronic Assessment and Plan: Polyp from stomach found to be a hyperplastic polyp in benign. Now status post removal. Patient likely had bleeding from gastric polyp site. No additional bleeding noted this is now stopped with a stable hemoglobin. Plan to advance to regular diet discharge today. No specific follow-up anticipated for this. (2) Melena: Code(s): K92.1 - Melena Status: Acute Assessment and Plan: Melenic stools have resolved. This was likely from bleeding after gastric polypectomy. Patient does not require transfusion. Plan to advance diet. No specific follow-up. No evidence for small bowel obstruction. No additional workup warranted. Subjective Date/time seen: 10/30/22 07:18 Patient alert comfortable this morning. Tolerating diet so far. Denies abdominal pain. Bowel movements have returned to normal. No additional black stools. Review of Systems Review of Systems: Review of systems noncontributory. Exam Narrative: Physical exam reveals patient be alert comfortable rest he is anicteric. HEENT exam unremarkable. Objective Data Vital Signs Vital Signs: Vital Signs - 24 hr 10/29/22 08:13 10/29/22 12:00 10/29/22 14:00 Temperature 97.5 F L 98.1 F Pulse Rate 83 85 Pulse Rate [Right Radial Palpation] 80 Respiratory Rate 24 H 20 Blood Pressure 139/89 139/89 136/75 Pulse Oximetry 100 99 Oxygen Delivery 10/29/22 16:00 10/29/22 21:26 10/29/22 20:00 Temperature 98.2 F Pulse Rate 81 Pulse Rate [Right Radial Palpation] 88 Respiratory Rate 18 Blood Pressure 151/78 H Pulse Oximetry 100 Oxygen Delivery Room Air 10/30/22 05:15 Temperature 97.7 F Pulse Rate 76 Pulse Rate [Right Radial Palpation] Respiratory Rate 12 Blood Pressure 144/78 H Pulse Oximetry 99 Oxygen Delivery Intake/Output Intake/Output: Intake & Output 10/27/22 10/28/22 10/29/22 10/30/22 23:59 23:59 23:59 23:59 Intake Total 1999 3730 1100 Output Total 990 950 Balance 1999 2740 150 Meds/Results Medications: Active Medications Generic Name Dose Route Start Last Admin Trade Name Freq PRN Reason Stop Dose Admin Chlordiazepoxide HCl 25 mg 10/29/22 11:06 Chlordiazepoxide (*Crx) 25 Mg Capsule PO Q6H PRN Withdrawal Duloxetine HCl 60 mg 10/30/22 09:00 Duloxetine Hcl 60 Mg Capsule.Dr LANDRY QAM VIJAYA Hydromorphone HCl 0.5 mg 10/28/22 12:52 10/30/22 06:34 Hydromorphone Hcl Inj (*Crx) 1 Mg/Ml Syr IV PUSH 0.5 mg Q4H PRN Administration Pain Rated 7-10 Sodium Chloride 1,000 mls @ 150 mls/hr 10/28/22 12:55 10/30/22 00:54 Normal Saline Iv IV CONT 150 mls/hr .Q6H40M VIJAYA Administration Lorazepam 1 mg 10/29/22 13:18 10/29/22 16:12 Lorazepam Inj (*Crx) 2 Mg/Ml Vial IV PUSH 1 mg Q4H PRN Administration Anxiety Ondansetron HCl 4 mg 10/28/22 12:52 Ondansetron Inj 4 Mg/2 Ml Vial IV PUSH Q4H PRN Nausea Pantoprazole Sodium 40 mg 10/28/22 21:25 10/29/22 21:13 Pantoprazole Sodium Iv 40 Mg Vial IV PUSH 40 mg Q12HR VIJAYA Administration Radiology Results: ITS Impressions Abdomen/Pelvis CT 10/28/22 10:44 IMPRESSION: 1. Small bowel obstruction. No evidence for perforation. Abdomen X-Ray 10/28/22 13:45 IMPRESSION: 1: NG tube tip in the stomach. Labs Labs: Laboratory Results - last 24 hr 10/29/22 06:45 Sodium 139 Potassium 4.4 Chloride 108 H Carbon Dioxide 29 Anion Gap 2 L BUN 27 H D Creatinine 0.90 Estim Creat Clear Calc 90 Estimated GFR > 60 Glucose 102 Calcium 7.8 L Amg Follow-up Billing Inpatient Follow-up [id number] [facility]
[2022-10-30 08:00] VITALS: PULSE 76
[2022-10-30] MEDS: PANTOPRAZOLE SODIUM IV 40 MG VIAL IV PUSH (09:41)
[2022-10-30] MEDS: DULoxetine HCL 60 MG CAPSULE.DR PO (09:41)
--- NOTE | 2022-10-30 10:14 | PM.DS ---
DS: Admitting Diagnosis Discharge Date 10/30/2022 Admitting Diagnosis Abdominal pain DS: Discharge Diagnosis Discharge Diagnosis (1) GI bleed: Code(s): K92.2 - Gastrointestinal hemorrhage, unspecified Status: Acute (2) Abnormal computed tomography of abdomen and pelvis: Code(s): R93.5 - Abnormal findings on diagnostic imaging of other abdominal regions, including retroperitoneum Status: Acute (3) Hyperkalemia: Code(s): E87.5 - Hyperkalemia Status: Acute (4) Gastroesophageal reflux disease: Code(s): K21.9 - Gastro-esophageal reflux disease without esophagitis Status: Acute (5) Hypertension: Qualifiers: Hypertension type: essential hypertension Qualified Code(s): I10 - Essential (primary) hypertension Code(s): I10 - Essential (primary) hypertension Status: Acute (6) Hyperlipidemia: Code(s): E78.5 - Hyperlipidemia, unspecified Status: Acute Plan The patient presented to the emergency department for evaluation of abdominal pain and melena since 01:00. He had upper and lower endoscopies done yesterday and had a gastric polypectomy. It sounds as though he may be bleeding from the polypectomy site and he has since been started on Protonix. Hemoglobin and hematocrit will be trended and he will be transfused if indicated. CT of the abdomen and pelvis shows findings of a small bowel obstruction though his abdominal exam at this time is relatively benign, I am wondering if he may have had an ileus. Continue NG for now. Drs. Benitez and Edwin have been consulted for their input. Potassium should improve with IV fluid hydration and will be repeated this evening. He will be NPO for now. IV analgesics and antiemetics available as needed. Vital signs were reviewed and they are stable. 10/29/2022 interval history: patient status post colonoscopy and polypectomy developed melena which is now improved and hemoglobin is stable, there was also concern patient may have small bowel obstruction patient was seen by GI and surgery service does not suspect patient has a small-bowel obstruction NG tube was removed and patient is advanced p.o. intake, patient also has history of alcohol abuse with concern for withdrawal. Place the patient on CIWA protocol with Librium and Ativan as needed continue and further recommendation to follow. DS: Summary Hospital Course Reason for hospitalization: Abdominal pain. Narrative: This is a pleasant 47-year-old male with GERD, hyperlipidemia, anxiety, and chronic pain syndrome on long-term opiate therapy who presented to the emergency department via EMS from home for evaluation of abdominal pain. He had upper and lower endoscopies yesterday and seemed to be doing okay following the procedure. At about 01:00 he was wakened from sleep with severe, diffuse abdominal pain as well as nausea and and sweats. He has difficulties describing the pain and states that it does not radiate.? He gives no aggravating or alleviating factors. He then passed upwards of for black, tarry stools throughout the rest of the night which has left him profoundly weak. In fact he had a couple of falls in his bedroom due to the weakness but he denies syncope. He indicates that he had a gastric polyp removed and he is wondering if the bleeding is due to that. With further questioning he does take 600 milligrams of ibuprofen twice a day but has done so for years and he takes that in conjunction with a PPI. Prior to today he has not noticed any dark stools. He denies vomiting hematemesis.? He has not a fever. In the ED was found to have evidence of a small-bowel obstruction on CT of the abdomen and pelvis and he is being admitted in this setting for supportive care and GI consultation given the melena. Hospital Course: patient status post colonoscopy and polypectomy developed melena which is now improved and hemoglobin is stable, there was also concern patient may have small bindu
[2022-10-30 12:00] VITALS: PULSE 70
[2022-10-30 14:00] VITALS: BP 177/87; PULSE 75; RESP 16; TEMP 37.2; O2SAT 100
[2022-10-30 14:37] LABS: Glucose Point of Care 129 mg/dl (65-105)
--- NOTE | 2022-10-30 14:44 | PM.PNGS ---
Progress Note: A&P Assessment and Plan (1) Gastric polyp: Code(s): K31.7 - Polyp of stomach and duodenum Status: Chronic Assessment and Plan: Seems to be doing well. I agree with Dr. Benitez, patient likely had some bleeding after his polypectomy and that has stopped. He is eating and has had bowel movements. Okay to discharge from surgical standpoint. (2) Abnormal computed tomography of abdomen and pelvis: Code(s): R93.5 - Abnormal findings on diagnostic imaging of other abdominal regions, including retroperitoneum Status: Acute Assessment and Plan: CT consistent with post polypectomy bleeding, no small bowel obstruction. Okay to discharge from surgical standpoint. Subjective Subjective Date/Time Seen: 10/30/22 14:44 Patient reports: no new complaints, feels better, tolerating liquids well, bowel movement and afebrile Review of Systems Review of Systems: All systems reviewed & are unremarkable except as noted in HPI and below (HPI) Exam Const: General: comfortable and no acute distress; No confusion Orientation/consciousness: patient oriented x3 and No confusion GI: Inspection: normal to inspection, non-distended and scaphoid GI Palp: Yes Soft to palpation, No Tenderness to palpation present (GI), No Guarding due to palpation present (GI) and No Rebound tenderness present Auscultation: normal bowel sounds Neuro: General: patient oriented x3, no focal motor deficits and No confusion Extrem: General: no calf tenderness and no edema Psych: Affect: normal affect Insight: Good insight present (Psych) Judgement: Good judgement present (Psych) Objective Data Vital Signs Vital Signs: Vital Signs - 24 hr 10/29/22 16:00 10/29/22 21:26 10/29/22 20:00 Temperature 36.8 C Pulse Rate 81 Pulse Rate [Right Radial Palpation] 88 Respiratory Rate 18 Blood Pressure 151/78 H Pulse Oximetry 100 Oxygen Delivery Room Air 10/30/22 05:15 10/30/22 08:00 10/30/22 12:00 Temperature 36.5 C Pulse Rate 76 Pulse Rate [Right Radial Palpation] 76 70 Respiratory Rate 12 Blood Pressure 144/78 H Pulse Oximetry 99 Oxygen Delivery Intake/Output Intake/Output: Intake & Output 10/27/22 10/28/22 10/29/22 10/30/22 23:59 23:59 23:59 23:59 Intake Total 1999 7050 5250 Output Total 990 950 Balance 1999 3272 1390 Meds/Results Medications: Active Medications Generic Name Dose Route Start Last Admin Trade Name Freq PRN Reason Stop Dose Admin Chlordiazepoxide HCl 25 mg 10/29/22 11:06 Chlordiazepoxide (*Crx) 25 Mg Capsule PO Q6H PRN Withdrawal Duloxetine HCl 60 mg 10/30/22 09:00 10/30/22 09:41 Duloxetine Hcl 60 Mg Capsule.Dr PO 60 mg QAM VIJAYA Administration Hydromorphone HCl 0.5 mg 10/28/22 12:52 10/30/22 10:32 Hydromorphone Hcl Inj (*Crx) 1 Mg/Ml Syr IV PUSH 0.5 mg Q4H PRN Administration Pain Rated 7-10 Sodium Chloride 1,000 mls @ 150 mls/hr 10/28/22 12:55 10/30/22 09:41 Normal Saline Iv IV CONT 150 mls/hr .Q6H40M VIJAYA Administration Lorazepam 1 mg 10/29/22 13:18 10/29/22 16:12 Lorazepam Inj (*Crx) 2 Mg/Ml Vial IV PUSH 1 mg Q4H PRN Administration Anxiety Ondansetron HCl 4 mg 10/28/22 12:52 Ondansetron Inj 4 Mg/2 Ml Vial IV PUSH Q4H PRN Nausea Pantoprazole Sodium 40 mg 10/28/22 21:25 10/30/22 09:41 Pantoprazole Sodium Iv 40 Mg Vial IV PUSH 40 mg Q12HR VIJAYA Administration Radiology Results: ITS Impressions Abdomen/Pelvis CT 10/28/22 10:44 IMPRESSION: 1. Small bowel obstruction. No evidence for perforation. Abdomen X-Ray 10/28/22 13:45 IMPRESSION: 1: NG tube tip in the stomach. Labs Labs: Laboratory Results - last 24 hr 10/30/22 10/30/22 06:46 14:25 WBC 5.7 RBC 3.11 L Hgb 9.9 L Hct 28.4 L MCV 91.3 MCH 31.8 MCHC 34.9 RDW 12.2 Plt Count 145 L MPV 10.5 H POC Capillary Glucose
== END 2022-10-30 14:40 | disposition home or self-care (01) | DRG 920 ==
LOC: ANHED 12:39 → ANH3MEDSUR 10-29 00:47
PROVIDERS: Physician Assistant; Surgery; Admitting Provider Internal Medicine; Emergency Provider Emergency Medicine; PCP Family Medicine; Visit Provider Family Medicine
DX: K91.840 Postprocedural hemorrhage of a digestive system organ or structure following a digestive system procedure (principal); K56.7 Ileus, unspecified; I10 Essential (primary) hypertension; E87.5 Hyperkalemia; E78.5 Hyperlipidemia, unspecified; D72.829 Elevated white blood cell count, unspecified; K21.9 Gastro-esophageal reflux disease without esophagitis; M54.9 Dorsalgia, unspecified; G89.29 Other chronic pain; F41.9 Anxiety disorder, unspecified; F90.9 Attention-deficit hyperactivity disorder, unspecified type; F17.220 Nicotine dependence, chewing tobacco, uncomplicated; Z20.822 Contact with and (suspected) exposure to COVID-19; Z86.010 Personal history of colon polyps; Z79.891 Long term (current) use of opiate analgesic; Z80.0 Family history of malignant neoplasm of digestive organs
CPT/HCPCS: 36415; 74176; 80048; 80053; 81001; 82948; 83690; 83735; 85014; 85018; 85025; 85027; 86850; 86900; 86901; 87636; 96361; 96374; 96375; 99285; A9270; C9113; J0131; J1170; J2060; J2405; J7030

== ENCOUNTER 2022-11-12 11:14 | Outpatient (CLI) | payer BC, SELFPAY ==
[2022-11-12 12:24] LABS: Hemoglobin 11.2 g/dL (14.0-18.0); Mean Corpuscular HGB Conc 33.9 g/dl (32-36); Mean Corpuscular Hemoglobin 31.7 pg (26-34); Mean Corpuscular Volume 93.5 fl (80-100); Mean Platelet Volume 9.9 fl (7.4-10.4); Platelet Count Result 256 k/mm3 (150-375); Red Blood Count 3.53 M/mm3 (4.6-6.20); White Blood Count 5.3 K/mm3 (4.5-10.0)
== END 2022-11-12 11:15 | disposition home or self-care (01) ==
PROVIDERS: PCP Family Medicine; Visit Provider Internal Medicine Gastroenterology
DX: K92.1 Melena (principal)
CPT/HCPCS: 36415; 85027

== ENCOUNTER 2024-01-24 10:37 | Emergency (ER) | payer BC, SELFPAY ==
[2024-01-24] VITALS (14 sets, daily range): BP systolic 121–155; BP diastolic 84–102; PULSE 83–106; RESP 15–20; TEMP 36.4–37.2; O2SAT 95–100
--- NOTE | ~2024-01-24 | XR_ITS ---
EXAMINATION: XR chest 2V DATE: 01/24/2024 11:52 INDICATION: Weakness. Dizziness. High blood pressure. TECHNIQUE: Frontal and lateral views of the chest were obtained. COMPARISON: Chest 2 views 03/11/2005, CT abdomen and pelvis 10/28/22 FINDINGS: There is no pneumonia, pleural effusion, or pneumothorax. The heart size is normal. IMPRESSION: 1. No acute cardiopulmonary disease. Reviewed, dictated and finalized at location [facility]. [facility]
--- NOTE | 2024-01-24 11:10 | ECG_ITS ---
Measurements Intervals [place] Rate: 94 P: 40 NM: 120 QRS: 21 QRSD: 97 T: 32 QT: 329 QTc: 412 Interpretive Statements SINUS RHYTHM EARLY PRECORDIAL R/S TRANSITION NONSPECIFIC T-WAVE ABNORMALITY- ANTERIOR LEADS BASELINE ARTIFACT- I, II, AVR BORDERLINE ECG NO PREVIOUS ECG AVAILABLE FOR COMPARISON Electronically Signed On 01-24-2024 11:56:01 [employer]AY UP O[employer]ATOR by Juwan Saldaña D.O.
[2024-01-24 11:28] LABS: Basophils Percent Auto 0.7 % (0.2-1.2); Eosinophils Absolute Auto 0.1 K/mm3 (0-0.3); Eosinophils Percent Auto 1.5 % (0-4.4); Hematocrit 40.4 % (42.0-52.0); Hemoglobin 13.3 g/dL (14.0-18.0); Immature Granulocyte Absolute 0.02 K/mm3 (0.00-0.031); Immature Granulocyte Percent A 0.4 % (0-0.5); Lymphocytes Percent Auto 37.6 % (18.3-44.2); Mean Corpuscular HGB Conc 32.9 g/dl (32-36); Mean Corpuscular Hemoglobin 30.6 pg (26-34); Mean Corpuscular Volume 92.9 fl (80-100); Mean Platelet Volume 10.3 fl (7.4-10.4); Monocytes Absolute Auto 0.3 K/mm3 (0.1-0.6); Monocytes Percent Auto 6.2 % (2.6-8.5); Neutrophils Absolute Auto 2.4 K/mm3 (1.3-6.7); Neutrophils Percent Auto 53.6 % (45.5-73.1); Platelet Count Result 194 k/mm3 (150-375); Red Blood Count 4.35 M/mm3 (4.6-6.20); Red Cell Distribution Width 12.5 % (11.5-14.5); White Blood Count 4.5 K/mm3 (4.5-10.0)
[2024-01-24 11:40] LABS: Alanine Aminotransferase 24 U/L (6-50); Albumin Level 4.2 g/dL (3.5-5.1); Alkaline Phosphatase 58 U/L (38-126); Anion Gap 4 mmol/L (8-16); Aspartate Amino Transferase 30 U/L (17-59); Bilirubin,Total 0.5 mg/dL (0.2-1.3); Blood Urea Nitrogen 18 mg/dL (9-20); Calcium 8.8 mg/dL (8.4-10.2); Carbon Dioxide 28 mmol/L (22-30); Chloride 104 mmol/L (98-107); Estimated CRCL calculation 89 ml/min; Estimated Glomerular Filt Rate > 60; Glucose 87 mg/dL (65-110); Potassium 4.5 mmol/L (3.4-5.0); Sodium 136 mmol/L (137-145)
[2024-01-24] MEDS: SODIUM CHLORIDE 0.9% IV 1,000 ML 999 ML IV CONT (12:05)
[2024-01-24] MEDS: MECLIZINE HCL 25 MG TABLET PO (12:05)
[2024-01-24 12:13] LABS: Appearance Urine Clear (Clear); Bilirubin Urine Negative (Negative); Blood Urine Negative (Negative); Color Urine Yellow (Yellow); Glucose Urine UA Negative (Negative); Ketones Urine Negative (Negative); Leukocyte Esterase Ur Negative LEU/UL (Negative); Nitrate Urine Negative (Negative); Protein Urine Negative (Negative); Specific Grav Ur 1.021 (1.001-1.035); Urobilinogen Urine 0.2 mg/dL (<2.0); pH Urine 5.5 (5.0-9.0)
--- NOTE | 2024-01-24 12:38 | ED.GENADULT ---
HPI - General Adult General Chief complaint: Weakness Stated complaint: elevated BP, weakness Time Seen by Provider: 01/24/24 11:24 History of Present Illness HPI narrative: Patient is a 48-year-old male who presents ER with dizziness. Began today. First the knee does from lying to sitting. Unsure if it is worse if he turns his head. He has had similar symptoms in the past. Associated with nausea and fatigue and weakness. No alleviating factors. Reports his blood pressure has been mildly elevated. Related Data Home Medications Medication Instructions Recorded Confirmed oxycodone 20 mg tablet 20 mg PO Q4H PRN Pain 11/08/19 01/19/24 alprazolam 0.5 mg tablet 0.5 mg PO TID PRN Anxiety 10/21/22 01/19/24 duloxetine 60 mg capsule,delayed 60 mg PO DAILY 10/21/22 01/19/24 release gabapentin 300 mg capsule 300 mg PO TID 10/21/22 01/19/24 trazodone 100 mg tablet 100 - 200 mg PO HS PRN Insomnia 10/21/22 01/19/24 Allergies Allergy/AdvReac Type Severity Reaction Status Date / Time ioversol Allergy Unknown Hives Verified 01/19/24 12:21 Contrast Media Allergy Severe HIVES Uncoded 01/19/24 12:21 IV CONTRAST Allergy Severe HIVES Uncoded 01/19/24 12:21 Review of Systems Review of Systems: All systems reviewed & are unremarkable except as noted in HPI and below Constitutional: Constitutional: Reports fatigue, Denies fever(s) and Reports weakness ENT: Reports dizziness, Denies nasal congestion and Denies sore throat Cardiovascular: Cardiovascular: Reports no additional cardiovascular complaints Respiratory: Respiratory: Reports no additional respiratory complaints Gastrointestinal: Gastrointestinal: Reports no additional gastrointestinal complaints Genitourinary: Genitourinary: Reports no additional male genitourinary complaints Neurologic: Reports system reviewed and no additional complaints, except as documented [facility] Past Medical History Medical History ADHD Anxiety Chronic back pain Chronic, continuous use of opioids Gastroesophageal reflux disease Hyperlipidemia Hypertension Obstructive sleep apnea No longer uses CPAP after weight loss. Vitamin D deficiency Surgical History Surgical History History of colonoscopy with polypectomy Family History Family History (Reviewed 01/19/24 @ 12:26 by Maurilio Eagle [facility]) Grandparent Carcinoma of colon, Onset Age: 60 Social History Social History (Reviewed 01/19/24 @ 12:26 by Maurilio Eagle [facility]) Social History: Surrogate medical decision maker: Cindy Rao, spouse. Code status: Full code. Smoking status: Former smoker Tobacco type: smokeless tobacco Smokeless tobacco user: chewing tobacco Second hand tobacco smoke exposure: No Additional smoking assessment comments: Chews nicotine gum. Alcohol intake: never Substance use: never Substance use type: does not use Lack of Transportation: No Lack of Food: Never True Current Housing: I Have Housing Concerned About Future Housing: No Difficulty Paying Gas/Electric Bills: No Difficulty Paying for Meds: No Currently Unemployed: No Education: Associate Degree Difficulty w/ Childcare or Family Care: No Living arrangements: with family Gender identity (if verbalized by the patient): Male Sexual Orientation (if Verbalized by the Patient): Straight or Heterosexual Spiritual care concerns: No Agree to blood products: Yes Exam Narrative: GENERAL: Well-appearing, well-nourished, and in no acute distress. HEAD: Normocephalic, atraumatic. EYES: PERRL and EOMI. No nystagmus. ENT: Mucous membranes moist. TM's normal bilaterally. NECK: Supple. CHEST: Clear to auscultation. No respiratory distress. HEART: Regular rate and rhythm. Normal peripheral pulses. ABDOMEN: Soft, nontender, nondistended. EXTREMITIES: Normal r
[2024-01-24 13:36] LABS: Add Urine Microscopic? NO
== END 2024-01-24 15:47 | disposition home or self-care (01) ==
PROVIDERS: Emergency Provider Emergency Medicine; PCP Family Medicine
DX: R42 Dizziness and giddiness (principal); I10 Essential (primary) hypertension; E78.5 Hyperlipidemia, unspecified; E55.9 Vitamin D deficiency, unspecified; M54.9 Dorsalgia, unspecified; G89.29 Other chronic pain; K21.9 Gastro-esophageal reflux disease without esophagitis; G47.33 Obstructive sleep apnea (adult) (pediatric); F90.9 Attention-deficit hyperactivity disorder, unspecified type; F41.9 Anxiety disorder, unspecified; Z87.891 Personal history of nicotine dependence; R94.31 Abnormal electrocardiogram [ECG] [EKG]
CPT/HCPCS: 36415; 71046; 80053; 81003; 85025; 93005; 96360; 99284; A9270; J7030